=== PATIENT | female | born 1945 | race Caucasian/White ===

== ENCOUNTER 2023-06-06 09:00 | Outpatient (RCR) | payer MEDICARE, SELFPAY ==
--- NOTE | 2023-04-23 11:22 | PT.OPEX ---
PT [place] [facility] Eval Start: 04/18/23 15:43 Freq: Status: Active Protocol: Document 04/23/23 08:58 MLS (Rec: 04/23/23 11:08 MLS [id number]) E-signed By Bia Swann DPT Physical Therapy Outpatient Evaluation Insurance Information Recert Due Date 07/21/23 Insurance Name Medicare B,[employer] Medical Diagnosis Z96.651 Presence of right knee replacement Treating Diagnosis M25.561 Pain in right knee Referring MD Armin Romero MD Subjective Subjective Patient comes to PT with reports of pain in right more than left knee pain. She had a right knee replacement in 2015. In June, it flared up again. She tried PT, but reports it didn't help. She states that her knee has never felt right and has always felt tight and restricted. She states that it always has been uncomfortable, not necessarily pain but discomfort. She states that overuse and too much sitting make her pain and discomfort worse. Nothing tends to help and she is never without any pain. Kasia reports that she has arthritis and occasional pain in her left knee. She states the pain in her left knee was bad in February, but she got an injection which really helped. She reports peripheral neuropathy in both feet that started about 3 years ago, cause unknown. She states that she currently walks for exercise but may be joining a local gym. She moved to [place] 2 weeks and is currently getting settled in her new home. Pain Comments Today: 3-4/10 on a 0-10 pain scale with 10 = extreme pain At its worst: 4/10 At its best: 2/10 Date of Last Physician Visit 04/17/23 Current Work Status Retired Occupation retired, previously worked in education, IT multiple positions Preferred Name Kasia Precautions Treatment Precautions/Contraindications nothing Weight Bearing Status Full Weight Bearing Therapy Limitations/Systems Review Not Limited Objective Other/Pertinent Objective GAIT/FUNCTIONAL MOBILITY Single leg stance: 3 seconds both sides Squat: WNL no pain KNEE ROM Flexion: 120 on right, 130 on left Extension: 0 both HIP ROM Flexion: WNL Extension: WNL Internal Rotation: WNL External Rotation WNL Abduction WNL LLE MMT: Hip flexion: R 5/5 L 5/5 Hip abduction: R 4+/5 L 5/5 Hip extension: R 5/5 L 5/5 Knee flexion: R 5/5 L 5/5 Knee extension: R /5 L /5 Toe walking and heel walking tightness, no pain SPECIAL TEST Patellofemoral grind test: positive on left -Valgus Test: negative on both -Varus Test: negative on both -Joint line tenderness: negative JOINT MOBILITY/PALPATION Multiple tender spots to palpation of right hamstring, quadricep and IT-band. No swelling or warmth noted today TX: Access Code: [email or web address] URL: [email or web address] Date: 04/23/2023 Prepared by: Bia Swann Exercises - Supine Heel Slide - 1 x daily - 7 x weekly - 3 sets - 10 reps - Clamshell - 1 x daily - 7 x weekly - 3 sets - 10 reps - Standing Hip Flexor Stretch - 1 x daily - 7 x weekly - 3 sets - 10 reps - Seated Hamstring Stretch - 1 x daily - 7 x weekly - 3 sets - 10 reps Functional Test Performed & Score 75/80 A score increase of 6 points shows a significant improvement in lower extremity fuction. Assessment Assessment/Impression Patient is a 77 year old female who presents to physical therapy for evaluation and treatment of right knee pain, discomfort and tightness. She had a TKA in 2016. These impairments are limiting the patient's ability to walk more than around her home, do stairs and stand very long. Patient appears motivated to participate in physical therapy and presents with a good prognosis to improve mobility, strength, proprioception and return to functional activities with skilled physical therapy intervention. Patient would benefit from skilled physical therapy interventions to facilitate return to prior level of function, improve overall activity tolerance and address any remaining impairments. Primary Functional Limitations Right knee pain and tightness Hamstring, quadricep and IT- band tightness Walking, exercising, standing over 1 hour and doing stairs Plan of Care Rehabilitation Potential Good Physical Therapy Goals STG: Pt will demonstrate consistent HEP compliance to ensure progress in reaching established goals during course of care. Pt will demonstrate independence in performance of home exercise program with the use of video and/or handouts in order to optimize functional mobility and reduce risk for re-injury. Patient will report ability to stand for 60 minutes with pain level <2/10, to allow for home, recreational and work tasks within 3 weeks. LTG: Patient will report ability to climb a flight of stairs with handrail in reciprocal fashion, to allow for household and community ambulation within 6 weeks Patient will demonstrate/ report ability to walk for 60 minutes with pain level <1/10, to allow for community and household ambulation within 6 weeks?? Patient will report pain levels <1/10 with all activities in order to improve functional mobility at home, work and during functional leisure activities. Coordination/Communication With Referral Source Treatment Plan/Direct Interventions Gait Training,Joint Mobilization,Manual Therapy, Therapeutic Exercises Frequency/Duration 2x/week for two weeks and 1x/ week for 2 weeks Progress as tolerated Patient Will Be Discharged From Therapy Independently Progressing Evaluation Billing Untimed Code Treatment Minutes 30 Complexity Low Certification Information Initial Certification Date 04/23/23 Ending Certification Date 07/21/23 Provider Signature Shows Agreement With POC & Medical Necessity Physician Signature & Date Requested Please Sign/Date Here Physician Comment/Change : Physician NPI Number #
== END 2023-08-19 15:13 | disposition home or self-care (01) ==
PROVIDERS: Visit Provider Orthopaedic Surgery
DX: Z96.651 Presence of right artificial knee joint (principal); Z51.89 Encounter for other specified aftercare
CPT/HCPCS: 97110; 97140; 97161

== ENCOUNTER 2025-03-16 13:00 | Outpatient (RCR) | payer MEDICARE, SELFPAY | END 2025-03-16 13:45 | disposition home or self-care (01) | PROVIDERS: Visit Provider Student in an Organized Health Care Education/Training Program | DX: M54.16 Radiculopathy, lumbar region (principal); Z51.89 Encounter for other specified aftercare | CPT/HCPCS: 97110; 97140; 97161 ==